=== PATIENT | female | born 1985 | race Caucasian/White ===

== ENCOUNTER → 2017-12-26 | Outpatient (CLI) | payer SELFPAY ==
[2017-12-26 19:31] LABS: BASO % 0.5 % (0.0-2.0); EOS # 0.2 (0.0-0.7); EOS % 1.9 % (0-4.0); GRAN # 4.9 (1.4-6.5); GRAN % 61.7 % (42.2-75.2); HEMOGLOBIN 13.2 g/dl (12.5-16.0); LYMPH % 25.7 % (20.0-51.0); MEAN CELL VOLUME 93 fl (80.0-100.0); MEAN CORPUSCULAR HEMOGLOBIN 32 pg (27.0-31.0); MEAN CORPUSCULAR HGB CONC 34 g/dl (33.0-37.0); MEAN PLATELET VOLUME 10.2 fl (7.4-10.4); MONO # 0.8 (0.1-0.6); MONO % 9.9 % (1.7-9.3); PLATELET COUNT 266 K/mm3 (130-400); RED BLOOD COUNT 4.18 M/mm3 (4.10-5.30); REDCELL DISTRIBUTION WIDTH-CV 13.2 % (11.5-14.5)
[2017-12-26 19:41] LABS: ALBUMIN 4.3 gm/dL (3.5-5.0); BILIRUBIN,TOTAL 1.2 mg/dL (0.0-1.0); CALCIUM 9.2 mg/dL (8.4-10.2); CREATININE, serum 0.72 mg/dL (0.52-1.25); POTASSIUM 3.8 mmol/L (3.4-5.0); TOTAL PROTEIN 8.5 gm/dL (6.4-8.2)
== END ==
LOC: COL.LAB 18:59
DX: Z01.812 Encounter for preprocedural laboratory examination (principal)

== ENCOUNTER → 2021-01-17 | Outpatient (CLI) | payer BC ==
[~2021-01-17] MED LIST: FERROUSAL325 MG PO; MOTRIN 800800 MG/TAB PO; PRENATAL TABLET PO
== END ==
LOC: ZCOL.LAB
DX: Z20.822 Contact with and (suspected) exposure to COVID-19 (principal)

== ENCOUNTER 2021-01-22 12:25 | Inpatient (IN) | payer BC ==
[~2021-01-22] VITALS: Ht 162.6 cm; Wt 107.3 kg
[2021-01-22] VITALS (8 sets, daily range): BP systolic 117–130; BP diastolic 68–85; PULSE 88–105; TEMP 98.1
[2021-01-22 20:16] LABS: BASO % 0.2 % (0.0-2.0); EOS # 0.1 (0.0-0.7); EOS % 0.7 % (0-4.0); GRAN # 5.9 (1.4-6.5); GRAN % 65.4 % (42.2-75.2); HEMOGLOBIN 11.8 g/dl (12.5-16.0); LYMPH # 2.3 (1.2-3.4); LYMPH % 25.5 % (20.0-51.0); MEAN CELL VOLUME 92 fl (80.0-100.0); MEAN CORPUSCULAR HEMOGLOBIN 31 pg (27.0-31.0); MEAN CORPUSCULAR HGB CONC 34 g/dl (33.0-37.0); MEAN PLATELET VOLUME 11.5 fl (7.4-10.4); MONO # 0.7 (0.1-0.6); MONO % 7.6 % (1.7-9.3); PLATELET COUNT 182 K/mm3 (130-400); RED BLOOD COUNT 3.83 M/mm3 (4.10-5.30); REDCELL DISTRIBUTION WIDTH-CV 14.6 % (11.5-14.5)
[2021-01-22 20:19] LABS: HEMATOCRIT 35.2 % (37.0-47.0)
[2021-01-22] MEDS ORDERED: FERROUSAL325 MG PO (20:53)
[2021-01-22] MEDS ORDERED: PRENATAL TABLET PO (20:53)
[2021-01-23] VITALS (66 sets, daily range): BP systolic 86–148; BP diastolic 7–97; PULSE 63–118; TEMP 97.8–99
[2021-01-24 02:00] VITALS: BP 98/48; PULSE 112; TEMP 98.7
[2021-01-24 08:57] VITALS: BP 94/50; PULSE 98; TEMP 98.4
[2021-01-24 12:27] VITALS: BP 113/73; PULSE 119; TEMP 98.5
[2021-01-24 16:15] VITALS: BP 117/70; PULSE 109; TEMP 98.7
[2021-01-24 20:25] VITALS: BP 80/41; PULSE 92; TEMP 98.1
[2021-01-25] MEDS ORDERED: MOTRIN 800800 MG/TAB PO (06:52)
[2021-01-25 09:04] VITALS: BP 118/66; PULSE 110; TEMP 98.6
== END 2021-01-25 11:40 | disposition home or self-care (01) | DRG 807 ==
LOC: LDR 18:59 → OB 01-23 22:00
PROVIDERS: ADMIT Obstetrics & Gynecology
PROC: 10E0XZZ Delivery of Products of Conception, External Approach (ICD-10-PCS; principal; 2021-01-23)
PROC: 0KQM0ZZ Repair Perineum Muscle, Open Approach (ICD-10-PCS; 2021-01-23)
PROC: 10907ZC Drainage of Amniotic Fluid, Therapeutic from Products of Conception, Via Natural or Artificial Opening (ICD-10-PCS; 2021-01-23)
PROC: 3E033VJ Introduction of Other Hormone into Peripheral Vein, Percutaneous Approach (ICD-10-PCS; 2021-01-23)
DX: O48.0 Post-term pregnancy (principal); Z37.0 Single live birth; Z3A.41 41 weeks gestation of pregnancy; O99.02 Anemia complicating childbirth; O99.214 Obesity complicating childbirth; E66.9 Obesity, unspecified; D64.9 Anemia, unspecified
CPT/HCPCS: J2590; J2795; J7120

== ENCOUNTER → 2021-02-19 | Outpatient (CLI) | payer BC ==
--- NOTE | 2021-02-19 15:38 | NUR ---
Pt, Carlyn Cardenas, presents for outpatient consult with 4 week old baby girl, Mary Cardenas. They were referred for evaluation because Mary was below weight at 3+ weeks of life. Mary was born on [birth year] and weighed 8#8.9oz (3880 gms). Discharge weight was 8# 4oz (3750 gms) the following evening. Pt reports Mary weighed 7#14oz at her doctor appts on both 01/29/21 and 02/16/21. At the most recent appt., pt was advised to start supplementing after , and pumping. Currently Mary is following this plan, drinking 3-4oz EBM/formula after and pt is pumping, collecting 1-2oz. Today Mary weighs 8#8.4oz (3868 gms). Pt states voids and stools have gotten larger with the extra feedings. Pt latches Mary to the right breast; Mary initially latches to about the base of the nipple. Pt advised/assisted with getting areola into the latch as well. After Mary has a weight gain of 4 gms from the right and 24 from the left. Pt agrees to try SNS, Mary drinks 2oz formula and has an additional gain of 8gms from the breast during the SNS feeding. LC evaluates Mary's mouth, does not find any concerning anatomy and she has a good suck effort. She did stay attached better and nurse more active with the supplement. POC: Continue current feeding plan (not likely to use SNS at home). Information about low milk supply and suggestions for improvement reviewed. F/U: Mary has an appt with Dr. Banuelos following this consult. Pt will track milk supply progression and contact this LC for an update at the end of this week, when follow up will be discussed. Questions invited and answered.
== END ==
LOC: LAC 14:26
DX: Z39.1 Encounter for care and examination of lactating mother (principal); Z71.89 Other specified counseling